=== PATIENT | male | born 1965 | race Caucasian/White ===

== ENCOUNTER 2018-11-08 05:40 | Outpatient (CLI) | payer MEDICAID | END 2018-11-08 05:41 | disposition critical access hospital (66) | LOC: EMS 05:40 | PROVIDERS: ATTEND Surgery | DX: R46.89 Other symptoms and signs involving appearance and behavior (principal) | CPT/HCPCS: A0425; A0429; A0999 ==

== ENCOUNTER 2018-11-08 05:54 | Emergency (ER) | payer MEDICAID ==
--- NOTE | 2018-11-08 06:10 | ED Physician Documentation ---
History of Present Illness - Stated complaint Stated Complaint: MHE - History obtained from History obtained from: Patient - History of Present Illness Timing: Prior to arrival - Additonal information Additional information: Patient is a 53-year-old male with history of mental health issues including depression and hallucinations for which she takes medications compliantly presenting with agitation following use of methamphetamine.Patient admits that he has struggled with polysubstance use in the past. Patient adamantly denies IV drug use and reports that he only used methamphetamine tonight. He denies other coingestions, prescription medications, other recreational drugs including marijuana or heroin, as well as alcohol. Patient denies any particular complaints except for feeling jittery and paranoid. No other improving or worsening symptoms noted. EMS was contacted by police who were initially called as patient was acting abnormally in a parking lot. Review of Systems Cardiac: denies: Chest pain / pressure Respiratory: denies: Dyspnea GI: denies: Abdominal Pain, Vomiting Psychiatric: reports: Depressed, Hallucinations PD PAST MEDICAL HISTORY - Past Medical History Past Medical History: Yes GI: GERD Psych: Depression - Past Surgical History Past Surgical History: Yes General: Cholecystectomy, Appendectomy - Present Medications Home Medications: Ambulatory Orders Medication Instructions Recorded Confirmed Olanzapine [Zyprexa] 10 mg PO BID 11/08/18 11/08/18 Sertraline HCl [Zoloft] 100 mg PO DAILY 11/08/18 11/08/18 raNITIdine [Zantac] 50 mg PO BID 11/08/18 11/08/18 - Allergies Allergies/Adverse Reactions: Allergies Allergy/AdvReac Type Severity Reaction Status Date / Time tramadol AdvReac Unknown Verified 11/08/18 06:05 PD ED PE NORMAL - General General: Alert and oriented X 3, Well developed/nourished, Other (Jaw thrusting, jittery in bed, moving hands excessively) - HEENT HEENT: Atraumatic, PERRL (Slightly dialted but reactive pupils b/l). No: Dentition benign (Poor dental hygiene throughout) - Cardiac Cardiac: No murmur. No: RRR (Tachycardic) - Respiratory Respiratory: No respiratory distress, Clear bilaterally - Abdomen Abdomen: Normal bowel sounds, Soft, Non tender, Non distended - Derm Derm: Normal color, Warm and dry, No rash - Extremities Extremities: No deformity, No tenderness to palpate, No edema - Neuro Neuro: Alert and oriented X 3, No motor deficit, No sensory deficit - Psych Psych: Other (Polite, makes eye contact, restleness in bed) Results - Vitals Vitals: Vital Signs - 24 hr 11/08/18 11/08/18 06:06 06:12 Temperature 37.3 C Heart Rate 118 H 118 H Respiratory 20 Rate Blood Pressure 124/92 H O2 Saturation 97 Oxygen O2 Source Room air - Labs Labs: Laboratory Tests 11/08/18 07:00 WBC 9.1 RBC 4.32 L Hgb 13.7 L Hct 38.2 L MCV 88.4 MCH 31.6 H MCHC 35.8 RDW 12.5 Plt Count 317 MPV 7.0 L Neut # (Auto) 7.0 H Lymph # (Auto) 1.1 L Peach # (Auto) 0.7 Eos # (Auto) 0.1 Baso # (Auto) 0.1 Absolute Nucleated RBC 0.00 Nucleated RBC % 0.0 PD MEDICAL DECISION MAKING - ED course Complexity details: reviewed results, re-evaluated patient, considered differential, d/w patient ED course: Patient admits to using methamphetamine just prior to arrival. Patient believes that he used to much methamphetamine, which is causing his symptoms. Patient is unable to remember how he used methamphetamine or how much. Patient also denies other coingestions including prescription drugs, recreational drugs, or other illicit drugs, and alcohol.Has minimal complaints except for feeling jittery and high. Physical exam is relatively benign. Do not find evidence of trauma, systemic illness or infection, neurological deficit. Patient does have symptoms indicative of use of methamphetamine. No other toxidromes, overdoses, withdrawal symptoms noted. At this time, feel the patient is stable. Will obtain screening lab work and urinalysis and monitor patient further.Patient then refused lab work and continued to be increasingly restless and agitated. Discussed possible medications with patient, who is not willing to take medications orally. [place] most appropriate to provide IM injections of Haldol, Benadryl, and Ativan to relieve agitation symptoms and obtain work-up.Patient much more comfortable following medications unable to obtain urine and lab work samples. Patient signed out to Dr. Mccain at approximately 0730. Disposition pending work-up and reevaluation.
[2018-11-08] MEDS ORDERED: HALOPERIDOL 5 MG/ML VIAL IM STA (06:23)
[2018-11-08] MEDS ORDERED: LORazepam 2 MG/ML VIAL IM STA (06:24)
[2018-11-08] MEDS ORDERED: diphenhydrAMINE INJ 50 MG/ML VIAL IM STA (06:25)
[2018-11-08 07:12] LABS: BASOPHILS # (AUTO) 0.1 10^3/uL (0.0-0.1); BASOPHILS % (AUTO) 0.7 %; EOSINOPHILS # (AUTO) 0.1 10^3/uL (0.0-0.7); EOSINOPHILS % (AUTO) 0.8 %; HGB - HEMOGLOBIN 13.7 g/dL (14.0-18.0); LYMPHOCYTES # (AUTO) 1.1 10^3/uL (1.5-3.5); LYMPHOCYTES % (AUTO) 12.6 %; MEAN CORPUSCULAR HEMOGLOBIN 31.6 pg (27.0-31.0); MEAN CORPUSCULAR HGB CONC 35.8 g/dL (32.0-36.0); MEAN CORPUSCULAR VOLUME 88.4 fL (80.0-94.0); MONOCYTES # (AUTO) 0.7 10^3/uL (0.0-1.0); MONOCYTES % (AUTO) 8.2 %; NEUTROPHILS % (AUTO) 77.7 %; PLT - PLATELET COUNT 317 10^3/uL (130-450); RED BLOOD COUNT 4.32 10^6/uL (4.70-6.10); RED CELL DISTRIBUTION WIDTH 12.5 % (12.0-15.0); WHITE BLOOD COUNT 9.1 x10^3/uL (4.8-10.8)
[2018-11-08 07:20] LABS: MUDS CUTOFF CONCENTRATIONS CUTOFF CONC BELOW:
[2018-11-08 07:27] LABS: ACETAMINOPHEN < 10 ug/mL (10-30); ALBUMIN 3.8 g/dL (3.2-5.5); ALBUMIN/GLOBULIN RATIO 0.9 (1.0-2.2); ALKALINE PHOSPHATASE 78 IU/L (42-121); ALT ALANINE AMINOTRANSFERASE 24 IU/L (10-60); AST ASPARTATE AMINOTRANSFERASE 23 IU/L (10-42); BILIRUBIN,TOTAL 2.5 mg/dL (0.2-1.0); BUN - BLOOD UREA NITROGEN 17 mg/dL (6-20); CARBON DIOXIDE - CO2 22 mmol/L (21-32); CHLORIDE 95 mmol/L (101-111); CREATININE 1.1 mg/dL (0.6-1.2); GFR - MDRD 70 (>89); GLUCOSE 271 mg/dL (70-100); LIPASE 29 U/L (22-51); SALICYLATE < 6.0 mg/dL; SODIUM 131 mmol/L (135-145); TOTAL PROTEIN 7.9 g/dL (6.7-8.2)
[2018-11-08 07:27] LABS: BILIRUBIN,URINE NEGATIVE (NEGATIVE); GLUCOSE, URINE (UA) >=1000 mg/dL (NEGATIVE); KETONES,URINE (UA) TRACE mg/dL (NEGATIVE); LEUKOCYTE ESTERASE, URINE NEGATIVE (NEGATIVE); NITRITE,URINE NEGATIVE (NEGATIVE); OCCULT BLOOD,URINE NEGATIVE (NEGATIVE); PH,URINE 5.5 PH (5.0-7.5); PROTEIN,URINE TRACE mg/dL (NEGATIVE); UROBILINOGEN,URINE 0.2 (NORMAL) E.U./dL (NORMAL)
[2018-11-08 07:34] LABS: CLARITY,URINE CLEAR (CLEAR)
[2018-11-08 07:45] LABS: AMPHETAMINE SCREEN,URINE POSITIVE (NEGATIVE); BENZODIAZEPINES SCREEN, URINE NEGATIVE (NEGATIVE); COCAINE SCREEN URINE POSITIVE (NEGATIVE); METHADONE SCREEN, URINE NEGATIVE (NEGATIVE); METHAMPHETAMINES SCREEN, URINE POSITIVE (NEGATIVE); OPIATE SCREEN, URINE NEGATIVE (NEGATIVE); OXYCODONE SCREEN, URINE NEGATIVE (NEGATIVE); PROPOXYPHENE SCREEN, URINE NEGATIVE (NEGATIVE); TRICYCLIC ANTIDEPRESSANT,URINE NEGATIVE (NEGATIVE)
[2018-11-08 11:30] VITALS: BP 103/70
--- NOTE | 2018-11-08 15:52 | ED Physician Documentation ---
ED Addendum - Addendum Addendum: 11/08/18 15:52 53-year-old gentleman in the emergency department tonight after odd behavior after using methamphetamines. Signed out from Dr. Dyson, he had received some sedatives for agitated delirium. He was allowed to sleep for several hours and I checked on him several times. He slowly woke up at around 3:30 PM he was awake and alert walking around the department in no distress. He was advised not to use methamphetamines again. He was discharged home in stable condition.
--- NOTE | 2018-12-03 12:36 | ED Physician Documentation ---
ED Addendum - Addendum Addendum: 12/03/18 12:35 Clinical impression: Methamphetamine use
== END 2018-11-08 15:55 | disposition home or self-care (01) ==
LOC: ED 05:54
DX: F15.921 Other stimulant use, unspecified with intoxication delirium (principal); F15.988 Other stimulant use, unspecified with other stimulant-induced disorder; R45.1 Restlessness and agitation; F32.9 Major depressive disorder, single episode, unspecified; R44.3 Hallucinations, unspecified
CPT/HCPCS: 36415; 80053; 80306; 80307; 80320; 80329; 81003; 83690; 84443; 85025; 96372; 99283; 99284; J1200; J2060; 81001; 87086